=== PATIENT | female | born 1970 | race Caucasian/White ===

== ENCOUNTER → 2017-02-14 | Outpatient (CLI) | payer BC ==
[2017-02-14 09:16] LABS: ALT 27 U/L (9-52); AST 23 U/L (14-36); Alkaline Phosphatase 71 U/L (38-126); Anion Gap 7 mmol/L; Blood Urea Nitrogen 18 mg/dL (7-17); Calcium 9.5 mg/dL (8.4-10.2); Carbon Dioxide 30 mmol/L (22-30); Chloride 105 mmol/L (98-107); Glucose 87 mg/dL (74-99); Non-African American GFR(MDRD) >60 (>60 ml/min/1.73 sqM); Potassium 5.1 mmol/L (3.5-5.1); Sodium 142 mmol/L (137-145); Total Bilirubin 0.5 mg/dL (0.2-1.3); Total Protein 7.4 g/dL (6.3-8.2)
== END ==
LOC: LABWHC1 07:54
PROVIDERS: ATTEND Internal Medicine
DX: I10 Essential (primary) hypertension (principal)
CPT/HCPCS: 36415; 80053

== ENCOUNTER → 2017-08-15 | Outpatient (CLI) | payer BC ==
--- NOTE | 2017-08-15 08:27 | XR ---
EXAMINATION TYPE: XR chest 2V DATE OF EXAM: 08/15/2017 COMPARISON: NONE INDICATION: Breast cancer TECHNIQUE: Frontal and lateral views of the chest are obtained. FINDINGS: The heart size is normal. The pulmonary vasculature is normal. The lungs are clear. There has been a left mastectomy. Osseous structures appear unremarkable. IMPRESSION: 1. No suspicious acute changes.
== END | disposition home or self-care (01) ==
LOC: RADXRMAIN 07:57
PROVIDERS: ATTEND Internal Medicine Hematology & Oncology
DX: C50.811 Malignant neoplasm of overlapping sites of right female breast (principal); B37.0 Candidal stomatitis; I10 Essential (primary) hypertension; Z17.0 Estrogen receptor positive status [ER+]
CPT/HCPCS: 71020

== ENCOUNTER → 2017-08-15 | Outpatient (CLI) | payer BC ==
[2017-08-15 08:48] LABS: Basophils % (A) 1 %; CH 30.8; CHCM 33.5; Eosinophils # (A) 0.1 k/uL (0-0.7); Eosinophils % (A) 1 %; HCT 39.8 % (34.0-46.0); HDW 2.26; HGB 13.1 gm/dL (11.4-16.0); Luc # (Auto) 0.14; Luc % (Auto) 2; Lymphocytes # (A) 1.5 k/uL (1.0-4.8); Lymphocytes % (A) 23 %; MCH 30.3 pg (25.0-35.0); MCHC 32.9 g/dL (31.0-37.0); MCV 92.3 fL (80.0-100.0); Mean Platelet Volume 6.7; Monocytes # (A) 0.4 k/uL (0-1.0); Monocytes % (A) 5 %; Neutrophils # (A) 4.4 k/uL (1.3-7.7); Neutrophils % (A) 67 %; RBC 4.31 m/uL (3.80-5.40); RDW 14.1 % (11.5-15.5); WBC 6.5 k/uL (3.8-10.6); WBC (Perox) 6.85
[2017-08-15 09:23] LABS: ALT 32 U/L (9-52); AST 22 U/L (14-36); Alkaline Phosphatase 82 U/L (38-126); Anion Gap 9 mmol/L; Blood Urea Nitrogen 16 mg/dL (7-17); Calcium 9.4 mg/dL (8.4-10.2); Carbon Dioxide 27 mmol/L (22-30); Chloride 105 mmol/L (98-107); Cholesterol 177 mg/dL (<200); Glucose 86 mg/dL (74-99); HDL Cholesterol 58 mg/dL (40-60); Non-African American GFR(MDRD) >60 (>60 ml/min/1.73 sqM); Potassium 4.9 mmol/L (3.5-5.1); Sodium 141 mmol/L (137-145); Total Bilirubin 0.4 mg/dL (0.2-1.3); Total Protein 7.4 g/dL (6.3-8.2)
== END | disposition home or self-care (01) ==
LOC: LABWHC1 07:54
PROVIDERS: ATTEND Internal Medicine
DX: Z00.00 Encounter for general adult medical examination without abnormal findings (principal); I10 Essential (primary) hypertension; E78.2 Mixed hyperlipidemia
CPT/HCPCS: 36415; 80053; 80061; 85025

== ENCOUNTER → 2017-09-10 | Outpatient (CLI) | payer BC ==
--- NOTE | 2017-09-10 11:21 | WWHP ---
[facility] - HISTORY AND PHYSICAL DATE OF SERVICE: 09/10/17 CHIEF COMPLAINT: The patient is here for her routine gynecologic exam. HPI: This is a 47-year-old, G1, P0-0-1-0 with an LMP of 2014. The patient is without gynecologic complaints and denies any postmenopausal bleeding. PAST MEDICAL HISTORY: Chronic hypertension and left breast cancer which was diagnosed in 2014. She is status post left mastectomy, chemo and radiation therapies. MEDICATION: 1. Tamoxifen 20 mg daily, which she will be taking for 10 years after her diagnosis of breast cancer. 2. Also, amlodipine with benazepril 5/20 mg 1 daily. ALLERGIES: No known drug allergies. 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 SOCIAL HISTORY: She denies tobacco and drug use and has about 1 alcohol containing drink per week. She works for [employer] in [employer]. She has been since 1992. REVIEW OF SYSTEMS: She has gained about 5 pounds over the last year. She denies respiratory, cardiac or GI problems. PHYSICAL EXAM: Blood pressure 127/87, height 5 feet 5 inches, weight 221 pounds, temperature 97.1, pulse 70. This is a well-developed, heavyset white female, who is alert and oriented x3, in no acute distress. HEENT is within normal limits. NECK: Supple without mass or thyromegaly. Chest lungs clear to auscultation. HEART: Regular rate and rhythm. The left breast is consistent with previous mastectomy. There are no masses in this area. The right breast is without mass or discharge. Axillary exam is negative for adenopathy. Back negative for CVA tenderness. ABDOMEN: Soft, nontender, without palpable masses. Pelvic exam normal external genitalia. Cervix and vagina appear normal. There is no evidence of atrophy or prolapse at this time. The uterus is mid position nongravid size and nontender. There are no palpable adnexal masses or tenderness. Rectal exam is negative for mass or tenderness and is negative for occult blood. Extremities nontender. IMPRESSION: 1. 47-year-old menopausal female with normal gynecologic exam. 2. History of a left breast cancer with no evidence of recurrence on exam today. PLAN: 1. Pap smear was deferred since she had a normal one last year. 2. Self breast examination was discussed. 3. Right-sided diagnostic mammogram will be due in October and the patient states she has an order for this from Dr. Leal. 4. Osteoporosis prevention was discussed. 5. She will return in 1 year. MMODL / IJN: [id number] /
== END ==
LOC: WWCWWP 09:47
PROVIDERS: ATTEND Obstetrics & Gynecology
DX: Z01.419 Encounter for gynecological examination (general) (routine) without abnormal findings (principal)

== ENCOUNTER → 2019-11-12 | Outpatient (CLI) | payer BC ==
--- NOTE | 2019-11-12 11:31 | MM ---
Reason for exam: additional evaluation requested from prior study. Last mammogram was performed 1 year ago. History: Patient is postmenopausal and has history of breast cancer at age 44. Family history of breast cancer in grandmother. Malignant US biopsy breast VAD LT of the left breast, November 22, 2014. Mastectomy of the left breast. Chemotherapy. Radiation therapy of the left breast. Taking antineoplastic for 2 years beginning at age 44. Physical Findings: Nurse did not find any significant physical abnormalities on exam. MG Diagnostic Mammo RT w CAD CC and MLO view(s) were taken of the right breast. Prior study comparison: November 11, 2018, right breast MG 3d diag mammo w/cad RT. November 06, 2017, right breast MG 3d diag mammo w/cad RT. The breast tissue is heterogeneously dense. This may lower the sensitivity of mammography. Benign appearing calcifications in the right breast. No suspicious abnormality. No significant new findings when compared with previous films. These results were verbally communicated with the patient and result sheet given to the patient on 11/12/19. ASSESSMENT: Benign, BI-RAD 2 RECOMMENDATION: Follow-up diagnostic mammogram of the right breast in 1 year.
== END | disposition home or self-care (01) ==
LOC: RADMAMWWP 10:36
PROVIDERS: ATTEND Internal Medicine Hematology & Oncology
DX: Z85.3 Personal history of malignant neoplasm of breast (principal)
CPT/HCPCS: 77065

== ENCOUNTER → 2019-12-08 | Outpatient (CLI) | payer BC ==
--- NOTE | 2019-12-08 15:05 | XR ---
EXAMINATION TYPE: XR chest 2V DATE OF EXAM: 12/08/2019 COMPARISON: 11/11/2018 HISTORY: Breast cancer. TECHNIQUE: Frontal and lateral views of the chest are obtained. FINDINGS: Lucency along the left lower lobe relates to left mastectomy. There is no focal air space o pacity, pleural effusion, or pneumothorax seen. The cardiac silhouette size is within normal limits. The osseous structures are intact. Mild multilevel degenerative change of the thoracic spine. IMPRESSION: No acute cardiopulmonary process.
== END | disposition home or self-care (01) ==
LOC: RADXRMAIN 14:19
PROVIDERS: ATTEND Internal Medicine Hematology & Oncology
DX: C50.112 Malignant neoplasm of central portion of left female breast (principal); I10 Essential (primary) hypertension; B37.0 Candidal stomatitis; Z17.0 Estrogen receptor positive status [ER+]
CPT/HCPCS: 71046

== ENCOUNTER → 2019-12-08 | Outpatient (CLI) | payer BC ==
--- NOTE | 2019-12-08 14:53 | US ---
EXAMINATION TYPE: US pelvic complete DATE OF EXAM: 12/08/2019 COMPARISON: NONE CLINICAL HISTORY: Postmenopausal bleeding N95.0. TECHNIQUE: Transabdominal sonographic images of the pelvis were acquired. Date of LMP: 2014 EXAM MEASUREMENTS: Uterus: 6.9 x 2.4 x 3.7 cm Endometrial Stripe: 0.4 cm Right Ovary: 1.8 x 1.4 x 1.1 cm Left Ovary: 1.9 x 1.1 x 1.2 cm 1. Uterus: Anteverted wnl 2. Endometrium: wnl 3. Right Ovary: wnl 4. Left Ovary: wnl 5. Bilateral Adnexa: wnl 6. Posterior cul-de-sac: wnl IMPRESSION: No endometrial thickening in this patient with postmenopausal bleeding. Endometrial thick ness measures 0.4 cm. Unremarkable pelvic ultrasound.
--- NOTE | 2019-12-08 17:47 | P.PN ---
Progress Note - Text Progress Note Date: 12/08/19 OUTPATIENT FOLLOW-UP NOTE TEST(S)/RESULTS: Pelvic ultrasound done on 12/08/2019 was unremarkable. Endometrial thickness was normal at 0.4 cm. Ovaries were within normal limits bilaterally. METHOD OF NOTIFICATION: The patient was notified by phone. PATIENT COMMENTS: The patient states she has not had any more postmenopausal bleeding since February 2018. She states she did not get around to doing the ultrasound until now. DIAGNOSIS: Normal pelvic ultrasound with no further postmenopausal bleeding after February 2018. DISCUSSION: PLAN: She has her annual well woman exam appointment for later this month.
== END | disposition home or self-care (01) ==
LOC: RADUSWWP 13:54
PROVIDERS: ATTEND Obstetrics & Gynecology
DX: N95.0 Postmenopausal bleeding (principal)
CPT/HCPCS: 76856

== ENCOUNTER → 2019-12-22 | Outpatient (CLI) | payer BC ==
[2019-12-22 12:49] VITALS: BP 132/83; PULSE 83; RESP 18; TEMP 98.8
--- NOTE | 2019-12-22 13:25 | P.HPOB ---
History of Present Illness H&P Date: 12/22/19 Chief Complaint: The patient is here for her routine gynecologic exam. This is a 49 year old with an LMP of 2014. The patient is without gynecologic complaints and denies any postmenopausal bleeding since the brief episode she had in October 2018. At that time pelvic ultrasound was recommended. She did not have this done until 12/08/2019. At that time pelvic ultrasound showed normal endometrial thickness of 0.4 cm. Review of Systems The patient's weight has been stable over the last year. She denies respiratory, cardiac, or G.I. problems. Past Medical History Past Medical History: Cancer, Hypertension Additional Past Medical History / Comment(s): Left breast Cancer 2015 status post mastectomy, chemotherapy and radiation. 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 BRCA testing was negative per the patient. History of Any Multi-Drug Resistant Organisms: None Reported Past Surgical History: Breast Surgery Additional Past Surgical History / Comment(s): Left mastectomy 2014. Port placement and later removed. Past Anesthesia/Blood Transfusion Reactions: No Reported Reaction Past Psychological History: No Psychological Hx Reported Smoking Status: Never smoker Past Alcohol Use History: Occasional (2 per week) Past Drug Use History: Marijuana (Rare usage) Additional History: She has been since 1992 and is currently unemployed. - Past Family History Sister(s) Additional Family Medical History / Comment(s): brain tumor Mother Family Medical History: Hypertension Additional Family Medical History / Comment(s): Maternal grandmother had lung cancer. Maternal uncle had colon cancer. Grandfather had prostate cancer. Father Family Medical History: Myocardial Infarction ([place]) Brother(s) Family Medical History: Hypertension, Myocardial Infarction ([place]) Medications and Allergies Home Medications Medication Instructions Recorded Confirmed Type Tamoxifen [Nolvadex] 20 mg PO DAILY 11/11/18 12/22/19 History amLODIPine [Norvasc] 5 mg PO DAILY 11/11/18 12/22/19 History Calcium Carbonate/Vitamin D3 2 each PO DAILY 12/22/19 12/22/19 History [Calcium 500-Vit D3 200 Tablet] Cholecalciferol (Vitamin D3) 2,000 unit PO DAILY 12/22/19 12/22/19 History [Vitamin D3] Lactobacillus Acidophilus 2 each PO DAILY 12/22/19 12/22/19 History [Acidophilus] Allergies Allergy/AdvReac Type Severity Reaction Status Date / Time No Known Allergies Allergy Verified 12/22/19 12:49 Exam Vital Signs Temp Pulse Resp BP Pulse Ox 12/22/19 12:43 98.8 F 83 18 132/83 99 Intake and Output 12/21/19 12/22/19 12/22/19 22:59 06:59 14:59 Other: Weight 94.347 kg Height 5 feet 5 inches, weight 208 pounds, BMI 34.6. This is a well-developed well-nourished heavyset white female who is alert and oriented times 3 in no acute distress. HEENT: Within normal limits. NECK: Supple without mass or thyromegaly. CHEST AND LUNGS: Clear to auscultation. HEART: Regular rate and rhythm. BREASTS: Right breast is without mass or discharge. Left side is consistent with previous left mastectomy. There are no masses or tenderness. AXILLARY EXAM: Negative for adenopathy. BACK: Negative for CVA tenderness. ABDOMEN: Soft, nontender, without palpable masses. PELVIC EXAM: Normal external genitalia. Cervix and vagina appear normal. There is no unusual discharge. There is no evidence of prolapse. The uterus is midposition, nongravid size and nontender. There are no palpable adnexal masses or tenderness. RECTAL EXAM: Rectovaginal exam is negative for mass or tenderness and is negative for occult blood. EXTREMITIES: Nontender. IMPRESSION: 1. 49 year old menopausal female with normal gynecologic exam. 2. Small postmenopausal bleeding more than one year ago with no recurrence of vaginal bleeding. Endometrial thickness was normal on 12/08/2019. 3. History of left breast cancer with no evidence of recurrence at this time. PLAN: 1. Pap smear was deferred since she had a normal one on 11/11/2018. 2. Self breast awareness was discussed with the patient. 3. Right mammogram was done on 11/12/2019 and was benign. She will repeat this in 1 year and she gets the order slip's from her oncologist. 4. Osteoporosis prevention was discussed. I have stressed the importance of adequate calcium, vitamin D and regular exercise. Recommended amounts of calcium and vitamin D were also discussed. 5. She was instructed to call if she has any vaginal bleeding. 6. She was advised to return in one year for her annual well woman exam.
== END | disposition home or self-care (01) ==
LOC: WWCWWP 12:19
PROVIDERS: ATTEND Obstetrics & Gynecology
DX: Z53.9 Procedure and treatment not carried out, unspecified reason (principal)

== ENCOUNTER → 2020-11-15 | Outpatient (CLI) | payer BC ==
--- NOTE | 2020-11-15 10:10 | MM ---
Reason for exam: additional evaluation requested from prior study. Last mammogram was performed 1 year ago. History: Patient is postmenopausal and has history of breast cancer at age 44. Family history of breast cancer in grandmother. Malignant US biopsy breast VAD LT of the left breast, November 22, 2014. Mastectomy of the left breast. Chemotherapy. Radiation therapy of the left breast. Took hormonal contraceptives for 14 years beginning at age 20. Taking antineoplastic for 5 years beginning at age 44. Physical Findings: Nurse did not find any significant physical abnormalities on exam. MG Diagnostic Mammo RT w CAD CC and MLO view(s) were taken of the right breast. Prior study comparison: November 12, 2019, right breast MG diagnostic mammo RT w CAD. November 11, 2018, right breast MG 3d diag mammo w/cad RT. The breast tissue is heterogeneously dense. This may lower the sensitivity of mammography. No significant new findings when compared with previous films. These results were verbally communicated with the patient and result sheet given to the patient on 11/15/20. ASSESSMENT: Benign, BI-RAD 2 RECOMMENDATION: Routine screening mammogram of both breasts in 1 year.
== END | disposition home or self-care (01) ==
LOC: RADMAMWWP 08:50
PROVIDERS: ATTEND Internal Medicine Hematology & Oncology
DX: Z08 Encounter for follow-up examination after completed treatment for malignant neoplasm (principal); Z85.3 Personal history of malignant neoplasm of breast
CPT/HCPCS: 77065

== ENCOUNTER → 2020-11-15 | Outpatient (CLI) | payer BC ==
--- NOTE | 2020-11-15 12:10 | XR ---
EXAMINATION TYPE: XR chest 2V DATE OF EXAM: 11/15/2020 COMPARISON: Prior chest x-ray 12/08/2019 HISTORY: Breast cancer TECHNIQUE: Frontal and lateral views of the chest are obtained. FINDINGS: There is no focal air space opacity, pleural effusion, or pneumothorax seen. The cardiac silhouette size is within normal limits. The osseous structures are stable. Patient is post left ma stectomy. IMPRESSION: No acute cardiopulmonary process.
== END | disposition home or self-care (01) ==
LOC: RADXRMAIN 09:32
PROVIDERS: ATTEND Internal Medicine Hematology & Oncology
DX: C50.112 Malignant neoplasm of central portion of left female breast (principal); I10 Essential (primary) hypertension; Z17.0 Estrogen receptor positive status [ER+]
CPT/HCPCS: 71046

== ENCOUNTER → 2021-02-28 | Outpatient (CLI) | payer BC ==
[2021-02-28 15:37] VITALS: BP 122/82; PULSE 102; RESP 18; TEMP 99.3
--- NOTE | 2021-02-28 18:16 | P.HPOB ---
History of Present Illness H&P Date: 02/28/21 Chief Complaint: The patient is here for her routine gynecologic exam. This is a 50-year-old with an LMP of 2014. The patient is without gynecologic complaints and denies any postmenopausal bleeding since the brief episode of light bleeding that she had in October 2018. She had a normal pelvic ultrasound with an endometrial thickness of 0.4 cm on 12/08/2019. Review of Systems The patient has gained 4 pounds over the last year. She denies respiratory, cardiac, or G.I. problems. Past Medical History Past Medical History: Cancer, Hypertension Additional Past Medical History / Comment(s): Left breast Cancer 2015 status post mastectomy, chemotherapy and radiation. 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 BRCA testing was negative per the patient. History of Any Multi-Drug Resistant Organisms: None Reported Past Surgical History: Breast Surgery Additional Past Surgical History / Comment(s): Left mastectomy 2014. Port placement and later removed. Past Anesthesia/Blood Transfusion Reactions: No Reported Reaction Past Psychological History: No Psychological Hx Reported Smoking Status: Former smoker Past Alcohol Use History: Occasional Past Drug Use History: Marijuana (Infrequently.) Additional History: She has been since 1992 and is currently unemployed. - Past Family History Sister(s) Additional Family Medical History / Comment(s): brain tumor Mother Family Medical History: Hypertension Additional Family Medical History / Comment(s): Maternal grandmother had lung cancer. Maternal uncle had colon cancer. Grandfather had prostate cancer. Father Family Medical History: Myocardial Infarction ([place]) Brother(s) Family Medical History: Hypertension, Myocardial Infarction ([place]) Medications and Allergies Home Medications Medication Instructions Recorded Confirmed Type Tamoxifen [Nolvadex] 20 mg PO DAILY 11/11/18 02/28/21 History amLODIPine [Norvasc] 5 mg PO DAILY 11/11/18 02/28/21 History Calcium Carbonate/Vitamin D3 2 each PO DAILY 12/22/19 02/28/21 History [Calcium 500-Vit D3 200 Tablet] Cholecalciferol (Vitamin D3) 2,000 unit PO DAILY 12/22/19 02/28/21 History [Vitamin D3] Lactobacillus Acidophilus 2 each PO DAILY 12/22/19 02/28/21 History [Acidophilus] Ascorbic Acid [Vitamin C] 1,000 mg PO DAILY 02/28/21 02/28/21 History Allergies Allergy/AdvReac Type Severity Reaction Status Date / Time No Known Allergies Allergy Verified 02/28/21 15:30 Exam Vital Signs Temp Pulse Resp BP Pulse Ox 02/28/21 15:32 99.3 F 102 H 18 122/82 98 Intake and Output 02/28/21 02/28/21 02/28/21 06:59 14:59 22:59 Other: Weight 96.162 kg Height 5 feet 5 inches, weight 212 pounds, BMI 35.3. This is a well-developed well-nourished white female who is alert and oriented times 3 in no acute distress. HEENT: Within normal limits. NECK: Supple without mass or thyromegaly. CHEST AND LUNGS: Clear to auscultation. HEART: Regular rate and rhythm. BREASTS: Right breast is without mass or discharge. Left side is consistent with previous left mastectomy. There are no masses or lesions noted. AXILLARY EXAM: Negative for adenopathy. BACK: Negative for CVA tenderness. ABDOMEN: Soft, nontender, without palpable masses. PELVIC EXAM: Normal external genitalia with minimal atrophy. Cervix and vagina appear normal with minimal atrophy. There is no unusual discharge. There is no evidence of prolapse. The uterus is midposition, nongravid size and nontender. There are no palpable adnexal masses or tenderness. RECTAL EXAM: Rectovaginal exam is negative for mass or tenderness and is negative for occult blood. EXTREMITIES: Nontender. IMPRESSION: 1. 50-year-old menopausal female with history of left breast cancer status post mastectomy, radiation, and chemotherapy in 2014. No evidence of recurrence. 2. Normal gynecologic exam. PLAN: 1. Pap smear cotest was performed. 2. Self breast awareness was discussed with the patient. 3. She had a benign diagnostic mammogram of the right breast in October 2020. She plans on repeating this after 1 year and she will be getting the order slip from her oncologist, Dr. Leal. 4. Osteoporosis prevention was discussed. I have stressed the importance of adequate calcium, vitamin D and regular exercise. Recommended amounts of calcium and vitamin D were also discussed. 5. I have recommended screening colonoscopy since she has not had this done. She will discuss this with her primary care physician. 6. She was advised to return in one year for her annual well woman exam.
--- NOTE | 2021-03-15 10:42 | P.PN ---
Progress Note - Text Progress Note Date: 03/15/21 OUTPATIENT FOLLOW-UP NOTE TEST(S)/RESULTS: Test results from 02/28/2021 include negative Pap smear and negative high-risk HPV testing. METHOD OF NOTIFICATION: The patient was notified by phone. PATIENT COMMENTS: The patient is happy to hear these results. DIAGNOSIS: Negative Pap smear cotest. DISCUSSION: PLAN: She was advised to return in one year for her annual well woman exam.
== END | disposition home or self-care (01) ==
LOC: WWCWWP 15:02
PROVIDERS: ATTEND Obstetrics & Gynecology
DX: Z01.419 Encounter for gynecological examination (general) (routine) without abnormal findings (principal); I10 Essential (primary) hypertension; Z85.3 Personal history of malignant neoplasm of breast; Z90.12 Acquired absence of left breast and nipple; Z92.3 Personal history of irradiation; Z87.891 Personal history of nicotine dependence; Z53.9 Procedure and treatment not carried out, unspecified reason

== ENCOUNTER → 2021-08-15 | Outpatient (CLI) | payer BC ==
[2021-08-15 15:04] LABS: Basophils # (A) 0.03 X 10*3/uL (0.00-0.10); Basophils % (A) 0.5 %; Eosinophils # (A) 0.05 X 10*3/uL (0.04-0.35); Eosinophils % (A) 0.8 %; HCT 41.1 % (37.2-46.3); Lymphocytes % (A) 28.7 %; MCHC 31.6 g/dL (32.0-37.0); MCV 94.9 fL (80.0-97.0); Mean Platelet Volume 9.5 fL (9.5-12.2); Monocytes % (A) 8.4 %; Neutrophils # (A) 3.64 X 10*3/uL (1.80-7.70); Neutrophils % (A) 61.4 %; Platelet Count 313 X 10*3/uL (140-440); RBC 4.33 X 10*6/uL (4.10-5.20); RDW 12.9 % (11.5-14.5); WBC 5.93 X 10*3/uL (4.50-10.00)
[2021-08-15 20:17] LABS: African American GFR (CKD) 98.9 (60.0-200.0); Albumin 4.4 g/dL (3.80-4.90); Albumin/Globulin Ratio 1.52 (1.60-3.17); Anion Gap 8.1 mmol/L (4.00-12.00); Calcium 9.2 mg/dL (8.7-10.3); Carbon Dioxide 26.9 mmol/L (21.6-31.8); Chol/HDL Ratio 3.02; Globulin 2.9 g/dL (1.6-3.3); LDL Cholesterol,Calculated 101.8 mg/dL (0.0-131.0); Non-African American GFR(CKD) 85.4 (60.0-200.0); Potassium 4.5 mmol/L (3.5-5.5); Total Bilirubin 0.5 mg/dL (0.2-1.2); Total Protein 7.3 g/dL (6.2-8.2); VLDL Calculation 21.2 mg/dL (5.00-40.00)
== END | disposition home or self-care (01) ==
LOC: LABWHC1 09:32
PROVIDERS: ATTEND Internal Medicine
DX: Z00.00 Encounter for general adult medical examination without abnormal findings (principal); C50.919 Malignant neoplasm of unspecified site of unspecified female breast
CPT/HCPCS: 36415; 80053; 80061; 82306; 84439; 84443; 85025

== ENCOUNTER → 2021-11-30 | Outpatient (CLI) | payer BC ==
--- NOTE | 2021-11-30 12:57 | XR ---
EXAMINATION TYPE: XR chest 2V DATE OF EXAM: 11/30/2021 COMPARISON: 11/15/2020 HISTORY: 51-year-old female C50.919, breast cancer TECHNIQUE: Frontal and lateral views FINDINGS: The cardiomediastinal silhouette, aorta, and pulmonary vasculature are within normal limits. Lungs an d pleural spaces are clear. IMPRESSION: No acute cardiopulmonary process.
== END | disposition home or self-care (01) ==
LOC: RADXRMAIN 12:03
PROVIDERS: ATTEND Internal Medicine
DX: C50.919 Malignant neoplasm of unspecified site of unspecified female breast (principal)
CPT/HCPCS: 71046

== ENCOUNTER → 2021-11-30 | Outpatient (CLI) | payer BC ==
--- NOTE | 2021-11-30 14:16 | MM ---
Reason for exam: additional evaluation requested from prior study. Last mammogram was performed 1 year ago. History: Patient is postmenopausal and has history of breast cancer at age 44. Family history of breast cancer in grandmother. Malignant US biopsy breast VAD LT of the left breast, November 22, 2014. Mastectomy of the left breast. Chemotherapy. Radiation therapy of the left breast. Took hormonal contraceptives for 14 years beginning at age 20. Taking antineoplastic for 5 years beginning at age 44. Physical Findings: Nurse did not find any significant physical abnormalities on exam. MG 3D Diag Mammo W/Cad RT CC and MLO view(s) were taken of the right breast. Prior study comparison: November 15, 2020, right breast MG diagnostic mammo RT w CAD. November 12, 2019, right breast MG diagnostic mammo RT w CAD. The breast tissue is heterogeneously dense. This may lower the sensitivity of mammography. No significant new findings when compared with previous films. These results were verbally communicated with the patient and result sheet given to the patient on 11/30/21. ASSESSMENT: Benign, BI-RAD 2 RECOMMENDATION: Follow-up diagnostic mammogram of the right breast in 1 year.
== END | disposition home or self-care (01) ==
LOC: RADMAMWWP 12:27
PROVIDERS: ATTEND Internal Medicine Hematology & Oncology
DX: R92.8 Other abnormal and inconclusive findings on diagnostic imaging of breast (principal); Z78.0 Asymptomatic menopausal state; Z85.3 Personal history of malignant neoplasm of breast
CPT/HCPCS: 77061; 77065

== ENCOUNTER → 2022-07-11 | Outpatient (CLI) | payer BC ==
[2022-07-11 10:14] VITALS: BP 113/79; PULSE 69; RESP 17; TEMP 98.3
--- NOTE | 2022-07-11 10:48 | P.HPOB ---
History of Present Illness H&P Date: 07/11/22 Chief Complaint: The patient is here for her routine gynecologic exam. This is a 51-year-old with an LMP of 2014. The patient is without gynecologic complaints and denies any postmenopausal bleeding. She continues to take tamoxifen through her oncologist for her history of breast cancer. Review of Systems The patient has lost 14 pounds over the last year. She denies respiratory, cardiac, or G.I. problems. Past Medical History Past Medical History: Cancer, Hypertension Additional Past Medical History / Comment(s): Left breast Cancer 2015 status post mastectomy, chemotherapy and radiation. 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 BRCA testing was negative per the patient. History of Any Multi-Drug Resistant Organisms: None Reported Past Surgical History: Breast Surgery Additional Past Surgical History / Comment(s): Left mastectomy 2014. Port placement and later removed. Past Anesthesia/Blood Transfusion Reactions: No Reported Reaction Past Psychological History: No Psychological Hx Reported Smoking Status: Former smoker Past Alcohol Use History: Occasional Past Drug Use History: Marijuana Additional Drug Use History / Comment(s): Used marijuana infrequently in the past. She no longer uses marijuana. Additional History: She has been since 1992. - Past Family History Sister(s) Additional Family Medical History / Comment(s): brain tumor Mother Family Medical History: Hypertension Additional Family Medical History / Comment(s): Maternal grandmother had lung cancer. Maternal uncle had colon cancer. Grandfather had prostate cancer. Father Family Medical History: Myocardial Infarction ([place]) Brother(s) Family Medical History: Hypertension, Myocardial Infarction ([place]) Medications and Allergies Home Medications Medication Instructions Recorded Confirmed Type Tamoxifen [Nolvadex] 20 mg PO DAILY 11/11/18 07/11/22 History amLODIPine [Norvasc] 5 mg PO DAILY 11/11/18 07/11/22 History Calcium Carbonate/Vitamin D3 2 each PO DAILY 12/22/19 07/11/22 History [Calcium 500-Vit D3 200 Tablet] Cholecalciferol (Vitamin D3) 2,000 unit PO DAILY 12/22/19 07/11/22 History [Vitamin D3] Ascorbic Acid [Vitamin C] 1,000 mg PO DAILY 02/28/21 07/11/22 History Anastasia,Cristian Lainezlactis 1 cap PO DAILY 07/11/22 07/11/22 History [Probiotic] Zinc 50 mg PO DAILY 07/11/22 07/11/22 History Allergies Allergy/AdvReac Type Severity Reaction Status Date / Time No Known Allergies Allergy Verified 07/11/22 10:09 Exam Vital Signs Temp Pulse Resp BP Pulse Ox 07/11/22 10:11 98.3 F 69 17 113/79 97 Intake and Output 07/10/22 07/11/22 07/11/22 22:59 06:59 14:59 Other: Weight 89.811 kg Height 5 feet 5 inches, weight 198 pounds, BMI 32.9. This is a well-developed well-nourished white female who is alert and oriented times 3 in no acute distress. HEENT: Within normal limits. NECK: Supple without mass or thyromegaly. CHEST AND LUNGS: Clear to auscultation. HEART: Regular rate and rhythm. BREASTS: Findings consistent with left mastectomy. The mastectomy site is without mass and is well-healed. The right breast is without mass or discharge. AXILLARY EXAM: Negative for adenopathy. BACK: Negative for CVA tenderness. ABDOMEN: Soft, nontender, without palpable masses. PELVIC EXAM: Normal external genitalia with mild atrophy. Cervix and vagina appear normal with mild atrophy. There is no unusual discharge. There is no evidence of prolapse. The uterus is midposition, nongravid size and nontender. There are no palpable adnexal masses or tenderness. RECTAL EXAM: Rectovaginal exam is negative for mass or tenderness and is negative for occult blood. EXTREMITIES: Nontender. IMPRESSION: 1. 51-year-old menopausal female with normal gynecologic exam. 2. History of left breast cancer in 2014 and is status post left mastectomy, radiation and chemotherapy. There is no evidence of recurrence on exam today. PLAN: 1. Pap smear was deferred since she had a negative Pap smear cotest on 02/28/2021. 2. Self breast awareness was discussed with the patient. We have also discussed symptoms associated with inflammatory breast cancer. 3. Diagnostic right mammogram will be due in November 2022. The order slip was given to the patient for this. 4. Osteoporosis prevention was discussed. 5. She is planning to do her first colonoscopy this fall and this will be arranged by her PCP. 6. She has not received any Covid vaccination. We have discussed the benefits of the vaccination and she will consider this. 7. She will continue to follow-up with her oncologist on a regular basis. I have stressed the importance of notifying me if she has any post menopausal vaginal bleeding on tamoxifen. 8. She was advised to return in one year for her annual well woman exam.
== END ==
LOC: WWCWWP 10:01
PROVIDERS: ATTEND Obstetrics & Gynecology
DX: Z01.419 Encounter for gynecological examination (general) (routine) without abnormal findings (principal); I10 Essential (primary) hypertension; Z85.3 Personal history of malignant neoplasm of breast; Z87.891 Personal history of nicotine dependence; Z90.12 Acquired absence of left breast and nipple; Z78.0 Asymptomatic menopausal state; Z92.21 Personal history of antineoplastic chemotherapy; Z92.3 Personal history of irradiation

== ENCOUNTER → 2022-12-03 | Outpatient (CLI) | payer BC ==
--- NOTE | 2022-12-03 10:04 | MM ---
Reason for Exam: Hx of breast cancer, mastectomy. Last screening mammogram was performed 12 month(s) ago. Patient History: Menarche at age 11. First Full-Term at age 18. Postmenopausal. Breast cancer, left, age 44. Hormonal Contraceptives for 14 years from age 20 until age 34. Mastectomy on the Left side. 11/22/2014, Malignant Core Biopsy on the left side. Chemotherapy. Radiation Therapy, left. Maternal grandmother had breast cancer. Prior Study Comparison: 11/12/2019 Right Diagnostic Mammogram, [facility]. 11/15/2020 Right Diagnostic Mammogram, [facility]. 11/30/2021 Right Diagnostic Mammogram, [facility]. Tissue Density: Right: The breast tissue is heterogeneously dense. This may lower the sensitivity of mammography. Findings: Analyzed By CAD. A few tiny benign-appearing round calcifications throughout the right breast are redemonstrated. Benign-appearing right axillary lymph nodes are again seen. No suspicious new mass or distortion in the right breast. Overall Assessment: Benign, BI-RAD 2 Management: Screening Mammogram of the right breast in 1 year. Return to routine follow-up. Results were given to the patient verbally at the time of exam. Electronically signed and approved by: Alok Bernal M.D.
== END | disposition home or self-care (01) ==
LOC: RADMAMWWP 09:38
PROVIDERS: ATTEND Internal Medicine Hematology & Oncology
DX: C50.112 Malignant neoplasm of central portion of left female breast (principal); B37.0 Candidal stomatitis; I10 Essential (primary) hypertension; Z17.0 Estrogen receptor positive status [ER+]; Z80.3 Family history of malignant neoplasm of breast; Z78.0 Asymptomatic menopausal state; Z85.3 Personal history of malignant neoplasm of breast; Z98.890 Other specified postprocedural states
CPT/HCPCS: 77061; 77065

== ENCOUNTER → 2022-12-18 | Outpatient (CLI) | payer BC, OTHER ==
--- NOTE | 2022-12-18 18:02 | BD ---
EXAMINATION TYPE: Axial Bone Density DATE OF EXAM: 12/18/2022 COMPARISON: NONE CLINICAL HISTORY: 52 years year old Female. ICD-10 CODE: Z78.0 ASYMPOTMATIC POSTMENOPAUSAL Height: 64 IN Weight: 194 LBS RISK FACTORS HISTORY OF: Active: YES Postmenopausal woman: AGE 44 MEDICATIONS: Additional Medications: CALCIUM, VIT D, TAMOXIFEN,AMLODIPINE, VIT C, ZINC, PROBIOTIC, Additional History: BREAST CANCER WITH CHEMO AND RADIATION EXAM MEASUREMENTS: Bone mineral densitometry was performed using the Modumetal System. Bone mineral density as measured about the Lumbar spine is: ----- L1-L4(G/cm2): 1.281 T Score Values are as follows: ----- L1: 1.3 ----- L2: 1.0 ----- L3: 0.9 ----- L4: 0.3 ----- L1-L4: 0.8 Bone mineral density BASELINE Bone mineral density about the R hip (g/cm2): 0.975 Bone mineral density about the L hip (g/cm2): 0.997 T Score values are as follows: -----R Neck: -0.5 -----L Neck: -0.3 -----R Total: -0.5 -----L Total: 0.1 Bone mineral density BASELINE FRAX%s: The graph provided illustrates a 4.5 chance for a major osteoporotic fx and a 0.1 chance for the hips probability for fx in 10 years time. IMPRESSION: Normal (Values between +1 and -1 indicate normal bone mass). Consider repeating this study in 5 year s or sooner if there is some new clinical indication. NOTE: T-SCORE=SD OF THE YOUNG ADULT MEAN.
== END | disposition home or self-care (01) ==
LOC: RADBDWWP 12:28
PROVIDERS: ATTEND Internal Medicine
DX: Z13.820 Encounter for screening for osteoporosis (principal); Z78.0 Asymptomatic menopausal state
CPT/HCPCS: 77080

== ENCOUNTER → 2023-12-10 | Outpatient (CLI) | payer BC ==
[2023-12-10 11:50] VITALS: BP 132/82; PULSE 83; RESP 16; TEMP 98.4
--- NOTE | 2023-12-10 12:07 | P.HPOB ---
History of Present Illness H&P Date: 12/10/23 Chief Complaint: The patient is here for her routine gynecologic exam. This is a 53-year-old with an LMP of 2014. The patient is without gynecologic complaints and denies any postmenopausal bleeding. She continues to take tamoxifen for her history of breast cancer and plans on taking it for about 1-2 more years. Review of Systems The patient's weight has been stable over the last year. She denies respiratory, cardiac, or G.I. problems. Past Medical History Past Medical History: Cancer, Hypertension Additional Past Medical History / Comment(s): Left breast Cancer 2015 status post mastectomy, chemotherapy and radiation. 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 BRCA testing was negative per the patient. History of Any Multi-Drug Resistant Organisms: None Reported Past Surgical History: Breast Surgery Additional Past Surgical History / Comment(s): Left mastectomy 2014. Port plac ement and later removed. Past Anesthesia/Blood Transfusion Reactions: No Reported Reaction Past Psychological History: No Psychological Hx Reported Smoking Status: Former smoker Past Alcohol Use History: Occasional (1 drink per week.) Past Drug Use History: Marijuana Additional Drug Use History / Comment(s): Used marijuana infrequently in the past. She no longer uses marijuana since approximately 2019. - Past Family History Sister(s) Additional Family Medical History / Comment(s): brain tumor Mother Family Medical History: Hypertension Additional Family Medical History / Comment(s): Maternal grandmother had lung cancer. Maternal uncle had colon cancer. Grandfather had prostate cancer. Father Family Medical History: Myocardial Infarction ([place]) Brother(s) Family Medical History: Hypertension, Myocardial Infarction ([place]) Medications and Allergies Home Medications Medication Instructions Recorded Confirmed Type Tamoxifen [Nolvadex] 20 mg PO DAILY 11/11/18 12/10/23 History amLODIPine [Norvasc] 5 mg PO DAILY 11/11/18 12/10/23 History Calcium Carbonate/Vitamin D3 2 each PO DAILY 12/22/19 12/10/23 History [Calcium 500-Vit D3 200 Tablet] Cholecalciferol (Vitamin D3) 2,000 unit PO DAILY 12/22/19 12/10/23 History [Vitamin D3] Ascorbic Acid [Vitamin C] 1,000 mg PO DAILY 02/28/21 12/10/23 History L.acidoph,Paracasei, B.lactis 1 cap PO DAILY 07/11/22 12/10/23 History [Probiotic] Zinc 50 mg PO DAILY 07/11/22 12/10/23 History Allergies Allergy/AdvReac Type Severity Reaction Status Date / Time No Known Allergies Allergy Verified 12/10/23 11:29 Exam Vital Signs Temp Pulse Resp BP Pulse Ox 12/10/23 11:29 98.4 F 83 16 132/82 100 Intake and Output 12/09/23 12/10/23 12/10/23 22:59 06:59 14:59 Other: Weight 89.811 kg Height 5 feet 5 inches, weight 198 pounds, BMI 32.9. This is a well-developed well-nourished white female who is alert and oriented times 3 in no acute distress. HEENT: Within normal limits. NECK: Supple without mass or thyromegaly. CHEST AND LUNGS: Clear to auscultation. HEART: Regular rate and rhythm. BREASTS: She is status post left mastectomy. The right breast is without mass or discharge. The area of the mastectomy his unremarkable AXILLARY EXAM: Negative for adenopathy. BACK: Negative for CVA tenderness. ABDOMEN: Soft, nontender, without palpable masses. PELVIC EXAM: Normal external genitalia with minimal atrophy. Cervix and vagina appear normal minimal atrophy. There is no unusual discharge. There is no evidence of prolapse. The uterus is midposition, nongravid size and nontender. There are no palpable adnexal masses or tenderness. RECTAL EXAM: rectovaginal exam is negative for mass or tenderness and is neg ative for occult blood. EXTREMITIES: Nontender. IMPRESSION: 1. 53-year-old menopausal female with normal gynecologic exam. 2. History of left breast cancer in 2015 status post left mastectomy, rad iation, and chemotherapy. There is no evidence of recurrence on exam today. PLAN: 1. Pap smear was deferred since she had a negative Pap smear cotest on 02/28/2021. 2. Self breast awareness was discussed with the patient. We have also discussed symptoms associated with inflammatory breast cancer. Diagnostic right mammogram is scheduled for 12/12/2023 and the order slip was given to the iesha ent for this. 3. Osteoporosis prevention was discussed. I have stressed the importance of adequate calcium, vitamin D and regular exercise. She had a negative bone density test on 12/18/2022. We will plan on repeating this at approximate age 59. 4. Cologuard testing was negative per the patient in 2022. 5. She will continue to see her oncologist because of her history of breast cancer. 6. She was advised to return in one year for her annual well woman exam.
== END ==
LOC: WWCWWP 11:08
PROVIDERS: ATTEND Obstetrics & Gynecology
DX: I10 Essential (primary) hypertension (principal); F12.90 Cannabis use, unspecified, uncomplicated; Z78.0 Asymptomatic menopausal state; Z85.3 Personal history of malignant neoplasm of breast; Z90.12 Acquired absence of left breast and nipple; Z92.3 Personal history of irradiation; Z92.21 Personal history of antineoplastic chemotherapy; Z87.891 Personal history of nicotine dependence

== ENCOUNTER → 2023-12-12 | Outpatient (CLI) | payer BC ==
--- NOTE | 2023-12-12 11:06 | MM ---
Reason for Exam: Additional evaluation requested from prior study. Last screening mammogram was performed 12 month(s) ago. Patient History: Menarche at age 11. First Full-Term at age 18. Postmenopausal. Breast cancer, left, age 44. Hormonal Contraceptives for 14 years from age 20 until age 34. Mastectomy on the Left side. 11/22/2014, Malignant Core Biopsy on the left side. Chemotherapy. Radiation Therapy, left. Maternal grandmother ([place]) had breast cancer. Prior Study Comparison: 11/05/2016 Right Diagnostic Mammogram, [facility]. 11/06/2017 Right Diagnostic Mammogram, [facility]. 11/11/2018 Right Diagnostic Mammogram, [facility]. 11/12/2019 Right Diagnostic Mammogram, [facility]. 11/15/2020 Right Diagnostic Mammogram, [facility]. 11/30/2021 Right Diagnostic Mammogram, [facility]. 12/03/2022 Right MG 3D diag mammo w/cad RT, [facility]. Tissue Density: Right: The breast tissue is heterogeneously dense. This may lower the sensitivity of mammography. Findings: Analyzed By CAD. Areas of asymmetric density laterally remain unchanged. No significant change from prior exams. Overall Assessment: Benign, BI-RAD 2 Management: Screening Mammogram of the right breast in 1 year. . Results were given to the patient verbally at the time of exam. Patient should continue monthly self-breast exams. A clinical breast exam by your physician is recommended on an annual basis. This exam should not preclude additional follow-up of suspicious palpable abnormalities. Electronically signed and approved by: Bill Alexander M.D. Radiologist
== END | disposition home or self-care (01) ==
LOC: RADMAMWWP 10:32
PROVIDERS: ATTEND Internal Medicine Hematology & Oncology
DX: R92.331 Mammographic heterogeneous density, right breast (principal); C50.112 Malignant neoplasm of central portion of left female breast; B37.0 Candidal stomatitis; I10 Essential (primary) hypertension; Z17.0 Estrogen receptor positive status [ER+]; Z71.3 Dietary counseling and surveillance; Z78.0 Asymptomatic menopausal state; Z80.3 Family history of malignant neoplasm of breast; Z90.12 Acquired absence of left breast and nipple
CPT/HCPCS: 77061; 77065

== ENCOUNTER → 2024-12-14 | Outpatient (CLI) | payer BC ==
--- NOTE | 2024-12-14 14:03 | MM ---
Reason for Exam: Hx of breast cancer, mastectomy. Last screening mammogram was performed 12 month(s) ago. Patient History: Menarche at age 11. First Full-Term at age 18. Postmenopausal. Breast cancer, left, age 44. Hormonal Contraceptives for 14 years from age 20 until age 34. Mastectomy on the Left side. 11/22/2014, Malignant Core Biopsy on the left side. Chemotherapy. Radiation Therapy, left. Maternal grandmother ([place]) had breast cancer. Prior Study Comparison: 11/30/2021 Right Diagnostic Mammogram, [facility]. 12/03/2022 Right MG 3D diag mammo w/cad RT, [facility]. 12/12/2023 Right MG 3D diag mammo w/cad RT, [facility]. Tissue Density: Right: The breasts are heterogeneously dense, which may obscure small masses. Findings: Analyzed By CAD. No significant change from prior exams. Overall Assessment: Negative, BI-RAD 1 Management: Screening Mammogram of the right breast in 1 year. Results were given to the patient verbally at the time of exam. Patient should continue monthly self-breast exams. A clinical breast exam by your physician is recommended on an annual basis. This exam should not preclude additional follow-up of suspicious palpable abnormalities. [facility], , 12/14/2024 2:00 PM. Electronically signed and approved by: Bill Alexander M.D. Radiologist
== END | disposition home or self-care (01) ==
LOC: RADMAMWWP 13:33
PROVIDERS: ATTEND Internal Medicine Hematology & Oncology
DX: C50.112 Malignant neoplasm of central portion of left female breast (principal); B37.0 Candidal stomatitis; I10 Essential (primary) hypertension; Z71.3 Dietary counseling and surveillance; Z17.0 Estrogen receptor positive status [ER+]; Z78.0 Asymptomatic menopausal state; Z80.3 Family history of malignant neoplasm of breast; R92.331 Mammographic heterogeneous density, right breast; R92.2 Inconclusive mammogram
CPT/HCPCS: 77061; 77065

== ENCOUNTER → 2024-12-22 | Outpatient (CLI) | payer BC ==
[2024-12-22 10:33] VITALS: BP 142/91; PULSE 73; RESP 16; TEMP 98.2
--- NOTE | 2024-12-22 11:03 | P.HPOB ---
History of Present Illness H&P Date: 12/22/24 Chief Complaint: The patient is here for her routine gynecologic exam. This is a 54-year-old -0-1-0 with an LMP of 2014. The patient is without gynecologic complaints and denies any postmenopausal bleeding. Review of Systems The patient has gained 4 pounds over the last year. She denies respiratory, cardiac, or G.I. problems. Past Medical History Past Medical History: Cancer, Hypertension Additional Past Medical History / Comment(s): Left breast Cancer 2015 status post mastectomy, chemotherapy and radiation (Tamoxifen for 10yr). 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 BRCA testing was negative per the patient. History of Any Multi-Drug Resistant Organisms: None Reported Past Surgical History: Breast Surgery Additional Past Surgical History / Comment(s): Left mastectomy 2014. Port placement and later removed. Past Anesthesia/Blood Transfusion Reactions: No Reported Reaction Past Psychological History: No Psychological Hx Reported Smoking Status: Former smoker Past Alcohol Use History: Occasional Past Drug Use History: Marijuana Additional Drug Use History / Comment(s): Used marijuana infrequently in the past. She no longer uses marijuana since approximately 2019. - Past Family History Sister(s) Additional Family Medical History / Comment(s): brain tumor Mother Family Medical History: Hypertension Additional Family Medical History / Comment(s): . Maternal grandmother had lung cancer. Maternal uncle had colon cancer. Grandfather had prostate cancer. Father Family Medical History: Myocardial Infarction ([place]) Brother(s) Family Medical History: Cancer, Hypertension, Myocardial Infarction ([place]) Additional Family Medical History / Comment(s): 1 brother has prostate cancer. Medications and Allergies Home Medications Medication Instructions Recorded Confirmed Type Tamoxifen [Nolvadex] 20 mg PO DAILY 11/11/18 12/22/24 History amLODIPine [Norvasc] 5 mg PO DAILY 11/11/18 12/22/24 History Calcium Carbonate/Vitamin D3 2 each PO DAILY 12/22/19 12/22/24 History [Calcium 500-Vit D3 200 Tablet] Cholecalciferol (Vitamin D3) 2,000 unit PO DAILY 12/22/19 12/22/24 History [Vitamin D3] Ascorbic Acid [Vitamin C] 1,000 mg PO DAILY 02/28/21 12/22/24 History L.acidoph,Paracasei, B.lactis 1 cap PO DAILY 07/11/22 12/22/24 History [Probiotic] Zinc 50 mg PO DAILY 07/11/22 12/22/24 History Allergies Allergy/AdvReac Type Severity Reaction Status Date / Time No Known Allergies Allergy Verified 12/22/24 10:31 Exam Vital Signs Temp Pulse Resp BP Pulse Ox 12/22/24 10:31 98.2 F 73 16 142/91 97 Intake and Output 12/21/24 12/22/24 12/22/24 22:59 06:59 14:59 Other: Weight 91.626 kg Height 5 feet 5 inches, weight 202 pounds, BMI 33.6. This is a well-developed well-nourished white female who is alert and oriented times 3 in no acute distress. HEENT: Within normal limits. NECK: Supple without mass or thyromegaly. CHEST AND LUNGS: Clear to auscultation. HEART: Regular rate and rhythm. BREASTS: The right breast is without mass or discharge. The left is consistent with her previous mastectomy. There are no masses, tenderness, or skin changes. AXILLARY EXAM: Negative for adenopathy. BACK: Negative for CVA tenderness. ABDOMEN: Soft, nontender, without palpable masses. PELVIC EXAM: Normal external genitalia with mild atrophy. Cervix and vagina appear normal with mild atrophy. There is no unusual discharge. There is no evidence of prolapse. The uterus is midposition, nongravid size and nontender. There are no palpable adnexal masses or tenderness. RECTAL EXAM: Rectovaginal exam is negative for mass or tenderness and is negative for occult blood. EXTREMITIES: Nontender. IMPRESSION: 1. 54-year-old menopausal female with normal gynecologic exam. 2. History of left breast cancer in 2015 status post left mastectomy, radiation, and chemotherapy. She plans on being on tamoxifen for a total of 10 years. There is no evidence of recurrence on exam today. PLAN: 1. Pap smear was deferred since she had a negative Pap smear cotest on 02/28/2021. 2. Self breast awareness was discussed with the patient. We have also discussed symptoms associated with inflammatory breast cancer. 3. Diagnostic right mammogram was done on 12/12/2023 and was benign. She will repeat this after 1 year. 4. Osteoporosis prevention was discussed. We will plan on repeating the bone density test at age 59 since she had a normal bone density test on 12/18/2022. 5. She was advised to return in one year for her annual well woman exam.
== END ==
LOC: WWCWWP 10:22
PROVIDERS: ATTEND Obstetrics & Gynecology
DX: N95.9 Unspecified menopausal and perimenopausal disorder (principal); Z85.3 Personal history of malignant neoplasm of breast; Z90.12 Acquired absence of left breast and nipple; Z92.21 Personal history of antineoplastic chemotherapy; Z92.3 Personal history of irradiation